=== PATIENT | male | born 1955 | race Caucasian/White ===

== ENCOUNTER → 2024-01-06 | Outpatient (CLI) | payer MEDICARE, OTHER | END | disposition home or self-care (01) | LOC: RESCLI 13:46 | PROVIDERS: ATTEND Internal Medicine | DX: I50.9 Heart failure, unspecified (principal); E11.9 Type 2 diabetes mellitus without complications; F32.A Depression, unspecified; I25.10 Atherosclerotic heart disease of native coronary artery without angina pectoris; G47.33 Obstructive sleep apnea (adult) (pediatric); K21.9 Gastro-esophageal reflux disease without esophagitis; E78.2 Mixed hyperlipidemia; Z88.8 Allergy status to other drugs, medicaments and biological substances; Z91.013 Allergy to seafood; Z90.49 Acquired absence of other specified parts of digestive tract; Z98.890 Other specified postprocedural states; Z94.1 Heart transplant status; Z79.82 Long term (current) use of aspirin; Z79.899 Other long term (current) drug therapy ==